=== PATIENT | female | born 1975 | race Caucasian/White ===

== ENCOUNTER → 2021-02-05 10:39 | Outpatient (CLI) | payer OTHER, SELFPAY ==
[2021-02-09 16:19] LABS: HPV Reflexed? NOT INDICATED
== END ==
PROVIDERS: Visit Provider Obstetrics & Gynecology
DX: Z12.4 Encounter for screening for malignant neoplasm of cervix (principal)
CPT/HCPCS: 88175; G0145

== ENCOUNTER 2021-04-09 13:23 | Emergency (ER) | payer OTHER, SELFPAY ==
[2021-04-09 13:25] VITALS: BP 140/98; PULSE 94; RESP 17; TEMP 36.3; O2SAT 97; BMI 34.7
--- NOTE | 2021-04-09 13:35 | EX.ED.UPPERE ---
HPI History of Present Illness Chief Complaint: Upper Extremity Injury Informant: patient Narrative Narrative: 45-year-old female states that she was lifting tables when her right hand was smashed between 2 of them. She is right-handed. She notes that it immediately swelled up. She notes painful range of motion. [facility] Medical History Anxiety Home Medications bupropion HCl 300 mg PO DAILY 04/09/21 [History Last Taken Unknown] etonogestrel-ethinyl estradiol 1 vag ring VAGINAL QMONTH 04/09/21 [History Last Taken Unknown] fluticasone propionate 2 spray INTRANASAL DAILY 04/09/21 [History Last Taken Unknown] montelukast 10 mg PO DAILY 04/09/21 [History Last Taken Unknown] Allergy/AdvReac Type Severity Reaction Status Date / Time No Known Allergies Allergy Verified 04/09/21 13:24 Social History (Updated 04/09/21 @ 13:[address] Maxwell Dias DO) Smoking Status: Never smoker substance use type: does not use ROS ROS ED Constitutional Constitutional ED: Denies chills or weight loss Eyes Eyes: Denies change in vision or diplopia ENT ENT ED: Denies ear pain, rhinorrhea or sore throat Cardiovascular Cardiovascular: Denies chest pain, orthopnea, palpitations or racing heartbeat Respiratory/Chest Respiratory/Chest: Denies cough, dyspnea or orthopnea Gastrointestinal Gastrointestinal: Denies abdominal pain, diarrhea, nausea or vomiting Genitourinary Genitourinary ED: Denies dysuria, hematuria or urinary frequency Musculoskeletal Musculoskeletal: Reports other Details: See HPI ; Denies arthralgias or myalgias Integumentary Denies abscess or rash Neurologic Neurologic: Denies headache(s) or weakness Psychiatric Psychiatric: Denies anxiety, depression, suicidal ideation or suicidal thoughts Endocrine Endocrinology: Denies polydipsia, polyphagia or polyuria Allergic/Immunologic Allergic/Immunologic ED: Denies mouth swelling, tongue swelling or urticaria EXAM Physical Exam Const Vital Signs: 04/09/21 13:25 Temperature 97.4 F L Temperature Source Temporal Pulse Rate 94 Respiratory Rate 17 Blood Pressure 140/98 H Blood Pressure Mean 112 Pulse Ox 97 Oxygen Delivery Method Room Air Positive well nourished and well developed General Appearance ED: well developed HEENT Reports normocephalic, head/scalp atraumatic and moist mucous membranes Eyes PERRL and EOMs intact bilaterally Neck no lymphadenopathy, supple and no JVD Resp normal respiratory effort and clear to auscultation bilaterally Cardio regular rate, regular rhythm and no murmurs GI normal to inspection, nondistended, normoactive bowel sounds and non-tender Palpation: soft Back/Spine no CVA tenderness and normal ROM Extremity full ROM Extremity Narrative: There is a hematoma over the dorsum of the right hand. It is located along the second and third metacarpal. Full range of motion. General Extremety ED: Negative for edema General Extremity: Negative for edema Neuro oriented x3 and CN's II-XII intact bilaterally Sensorium / Orientation: alert Motor Exam: strength 5/5 throughout Psych mental status grossly normal Mood & Affect: Negative for depressed or tearful Skin no rashes or lesions noted and no wounds MDM MDM MDM Narrative Medical decision making narrative: My interpretation of the plain films of the right hand is no acute fracture. Soft tissue swelling noted. Patient will be treated with ice Tylenol and Motrin. Monitor for compartment syndrome. follow-up as needed return if worsening or concerns Discharge Plan Triage Chief Complaint: Upper Extremity Injury ED Provider: Maxwell Dias Dx/Rx/DC Orders Clinical Impression: Traumatic hematoma of right hand Instructions: ED Crush Injury, Hand, ED Hematoma Prescriptions: No Action montelukast 10 mg tablet 10 mg PO DAILY RF: 0 fluticasone propionate 50 mcg/actuation spray,suspension 2 spray INTRANASAL DAILY RF: 0 etonogestrel-ethinyl estradiol 0.12-0.015 mg/24 hr ring 1 vag ring VAGINAL QMONTH RF: 0 bupropion HCl 300 mg tablet extended release 24 hr 300 mg PO DAILY RF: 0 Primary Care Provider: Lesly Johnson Referrals: Lesly Johnson DO [Primary Care Provider] - As Needed Disposition Disposition: Home, self care
--- NOTE | 2021-04-09 13:40 | RAD_ITS ---
STUDY: X-RAY - RIGHT HAND REASON FOR EXAM: Female, 45 years old. Injury TECHNIQUE: 3 view(s) of the hand. COMPARISON: None. FINDINGS: Normal radiocarpal articulation. Normal distal radioulnar joint. Normal visualized carpal bones. Normal carpal articulations Normal carpometacarpal articulation of the thumb. Normal second through fifth carpometacarpal joints. Normal metacarpi. Normal metacarpophalangeal joint of the thumb. Normal interphalangeal joint of the thumb. Normal proximal and distal phalanges of the thumb. Normal metacarpophalangeal joints of the second through fifth fingers. Normal proximal and distal interphalangeal joints of the second through fifth fingers. Normal phalanges of the second through fifth fingers. Dorsal soft tissue swelling. RAD/Hand Min 3 Views IMPRESSION: Dorsal soft tissue swelling. Electronically Signed: Tano Velasco MD at 13:50 EDT , Service support ,
== END 2021-04-09 14:00 | disposition home or self-care (01) ==
LOC: ED 13:52
PROVIDERS: Emergency Provider Emergency Medicine; PCP Internal Medicine
DX: S60.221A Contusion of right hand, initial encounter (principal); W23.0XXA Caught, crushed, jammed, or pinched between moving objects, initial encounter; Y93.89 Activity, other specified; Y92.9 Unspecified place or not applicable; Y99.9 Unspecified external cause status; F41.9 Anxiety disorder, unspecified; Z79.899 Other long term (current) drug therapy
CPT/HCPCS: 73130; 99282

== ENCOUNTER → 2024-12-03 | Outpatient (CLI) | payer OTHER, SELFPAY ==
[2024-12-06 14:08] LABS: HPV APTIMA, High Risk Negative (Negative)
== END | disposition home or self-care (01) ==
LOC: LABSPEC 11:46
PROVIDERS: PCP Internal Medicine; Referring Provider Obstetrics & Gynecology; Visit Provider Obstetrics & Gynecology
DX: Z12.4 Encounter for screening for malignant neoplasm of cervix (principal)
CPT/HCPCS: 87624; 88175; G0145

== ENCOUNTER → 2024-12-10 | Outpatient (CLI) | payer OTHER, SELFPAY ==
--- NOTE | 2024-12-10 15:16 | US_ITS ---
PROCEDURE: PELVIC W/ TRANSVAGINAL REASON FOR EXAM: Abnormal menses. TECHNIQUE: Transabdominal and transvaginal pelvic ultrasound COMPARISON: None. FINDINGS: Measurements: Uterus: 8.3 cm x 5.8 cm x 5 cm. Endometrial Thickness: 18.5 mm. This is thickened. Hyperechoic. Nabothian cyst of the cervix. Right Ovary: 4 cm x 4.1 cm x 3.4 cm. There is a 2.9 cm x 3.1 cm x 2.6 cm cyst. Left Ovary: 2.3 cm x 1.9 cm x 1.6 cm. TRANSABDOMINAL: Uterus: Normal size, myometrial echotexture, and contour. Endometrium: Endometrial thickening. Right ovary: Normal size and echotexture. Left ovary: Normal size and echotexture. No large pelvic mass identified. Transvaginal sonography was performed to better visualize the endometrium. TRANSVAGINAL: Uterus: Anteverted. Normal contour and myometrial echotexture. Endometrium: Endometrium is thickened. Right ovary: 2.9 cm x 3.1 cm x 2.6 cm right ovarian cyst. Left ovary: Normal size and echotexture. Other adnexal findings: None. Cul-de-sac: No free intraperitoneal fluid identified. No tenderness. US/Pelvic w/ Transvaginal IMPRESSION: Endometrium is thickened. Right ovarian cyst. Reading Location: [facility]
== END | disposition home or self-care (01) ==
LOC: US 15:15
PROVIDERS: PCP Internal Medicine; Referring Provider Obstetrics & Gynecology; Visit Provider Obstetrics & Gynecology
DX: N93.9 Abnormal uterine and vaginal bleeding, unspecified (principal)
CPT/HCPCS: 76830; 76856

== ENCOUNTER → 2025-02-01 | Outpatient (CLI) | payer OTHER, SELFPAY ==
--- NOTE | 2025-02-01 10:40 | EMB_PTH ---
PATIENT: JAYESH ANGULO LOC: [facility] U#:[id number] AGE/SX: 49/F ROOM: RE02/01/[address]: Dr. Ava Khalil DO : 1975 BED: DIS: 02/01/2025 SPEC #: [id number] RECD: 02/01/25 12:56 STATUS: SALLY REMita #: [id number] MIMI: 02/01/25 10:[address]: Ava Khalil DEPT: SURGICAL PATHOLOGY RECD BY: Hernando Elliott ENTERED: 02/01/25 12:57 SP TYPE: ENDOM BX/C OTHR DR: Dr. Lesly Johnson, DO Tissues: A - Endometrium, NOS Procedures: Surgery Specimen Level IV HEADER OPERATION: Endometrial biopsy PRE-OP DIAGNOSIS: Menorrhagia TISSUE SUBMITTED: A- Endometrial lining MICROSCOPIC DIAGNOSIS A. Uterus, endometrial lining, biopsy: - Disordered proliferative endometrium. MICROSCOPIC DESCRIPTION Slides are reviewed. GROSS DESCRIPTION A. Received in formalin in a container labeled with the patient's name, date of , and EMB are multiple rosario-pink fragments of soft tissue admixed with blood and mucus measuring 2.2 x 1.5 x 0.1 cm in aggregate. Submitted in toto in A1. [facility] 02-01-2025 CPT:10330
== END | disposition home or self-care (01) ==
LOC: BWCLAB 11:17
PROVIDERS: PCP Internal Medicine; Referring Provider Obstetrics & Gynecology; Visit Provider Obstetrics & Gynecology
DX: N92.0 Excessive and frequent menstruation with regular cycle (principal)
CPT/HCPCS: 88305

== ENCOUNTER 2025-03-26 05:32 | Day surgery (SDC) | payer OTHER, SELFPAY ==
[2025-03-15 17:07] LABS: Hematocrit 35.7 % (37-47); Mean Corp Hgb Conc 33.6 g/dL (32-36); Mean Corpuscular Hgb 28.2 pg (27.0-32.0); Mean Corpuscular Volume 83.8 fL (81-99); Platelet Count 191 K/mm3 (150-450); RBC Distribution Width SD 42.7 fl (35.1-43.9); Red Blood Count 4.26 M/mm3 (4.2-5.4); White Blood Count 7.7 K/mm3 (4.4-11.0)
[2025-03-15 17:21] LABS: Magnesium 2.1 mg/dL (1.5-2.2)
[2025-03-26] VITALS (11 sets, daily range): BP systolic 93–154; BP diastolic 60–91; PULSE 52–74; RESP 15–18; TEMP 36.3–37.2; O2SAT 99–100; BMI 38.6
[2025-03-26 06:16] LABS: Internal QC Validated? YES +Cl - CLEAR BKGD; Pregnancy, Urine Negative Negative
[2025-03-26] MEDS: Magnesium 1 GM over 15 mins IV (06:41)
[2025-03-26] MEDS: Lactated Ringers 1,000 ML 40 ML IV (06:41)
[2025-03-26] MEDS: Acetaminophen 500 MG Tablet 1000 MG PO (06:42)
[2025-03-26] MEDS: Phenazopyridine 95 MG Tablet 190 MG PO (06:42)
[2025-03-26] MEDS: Celecoxib 200 MG Capsule 400 MG PO (06:42)
[2025-03-26] MEDS: Gabapentin 600 MG Tablet PO (06:42)
[2025-03-26] MEDS: Scopolamine 1mg/72hr Patch 1 PATCH TD (06:42)
--- NOTE | 2025-03-26 06:42 | HP.PCM_ITS ---
History and Physical Date of Admission: 03/26/25 Intake Vital Signs 02/01/2510:13 03/15/2515:46 03/15/2515:46 Height 5 ft 5 in 5 ft 5 in 5 ft 5 in Weight: 232 lb 4 oz BMI 38.6 BP 137/85 H Intake Visit Reasons: TRH BS Cysto Removable Prosthodontist Required: No Is patient in pain?: No Allergies No Known Allergies Allergy (Verified 03/15/25 15:46) Medications ?Medication ?Instructions ?Recorded ?Confirmed ?Type medroxyprogesterone 10 mg tablet 10 mg PO QDAY #10 tabs 03/15/25 03/15/25 Rx Post menopausal: No Patient : No : No PFSH Medical History Heartburn Asthma Non-smoker Leg cramps Surgical History History of ankle surgery S/P cataract surgery Family History Father Diabetes Social History Smoking Status: Never smoker alcohol intake: never substance use type: does not use caffeine: Yes what type of physical activity do you participate in: none seatbelt use: always do you feel safe at home: Yes additional social history: - [facility] TR[facility] BS Cysto Details: JAYESH ANGULO is a 49 year old G0 who presents for hysterectomy preop. She suffers with heavy menses that last 16 days. 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 She mom had a hysterectomy when she was her age and she wonders if she would need one. Her l ast pap was with Dr. Guerrero in 2020. (normal without hpv). EMB is benign. Ultrasound shows the following: FINDINGS: Measurements: Uterus: 8.3 cm x 5.8 cm x 5 cm. Endometrial Thickness: 18.5 mm. This is thickened. Hyperechoic. Nabothian cyst of the cervix. Right Ovary: 4 cm x 4.1 cm x 3.4 cm. There is a 2.9 cm x 3.1 cm x 2.6 cm cyst. Left Ovary: 2.3 cm x 1.9 cm x 1.6 cm. TRANSABDOMINAL: Uterus: Normal size, myometrial echotexture, and contour. Endometrium: Endometrial thickening. Right ovary: Normal size and echotexture. Left ovary: Normal size and echotexture. No large pelvic mass identified. Transvaginal sonography was performed to better visualize the endometrium. TRANSVAGINAL: Uterus: Anteverted. Normal contour and myometrial echotexture. Endometrium: Endometrium is thickened. Right ovary: 2.9 cm x 3.1 cm x 2.6 cm right ovarian cyst. Left ovary: Normal size and echotexture. Other adnexal findings: None. Cul-de-sac: No free intraperitoneal fluid identified. No tenderness. US/Pelvic w/ Transvaginal IMPRESSION: Endometrium is thickened. Right ovarian cyst. History 0 Elective abortions Hx Para Spontaneous abortions Hx # Term Pregnancies Ectopic pregnancies Hx # Pregnancies Multiple births # of living children ROS Const ROS Unobtainable: All systems reviewed & are unremarkable except as noted in H Resp Resp: Reports system reviewed and no additional complaints, except as documented; Denies cough GI GI: Reports as per HPI Psych Psych: Reports system reviewed and no additional complaints, except as documented Exam Const General: cooperative, healthy appearing, comfortable and no acute distress Resp Effort & Inspection: normal respiratory effort Skin General: no rashes or lesions noted Psych Appearance: grossly normal Speech and Movement: speech and movement normal Coding Level of Care Code Off vis,est,level 4 Diagnoses Menorrhagia N92.0 Assessment and Plan Assessment and Plan (1) Menorrhagia: Status: Acute Medications: New medroxyprogesterone 10 mg PO QDAY 10 tabs 0RF Plan After discussing the patient's diagnosis and treatment plan options, patient wishes to proceed with surgical management. I have discussed with the patient the risks, benefits, and alternatives of the procedure which include but are not limited to risks of anesthesia, bleeding, infection, possible damage to bowel, bladder, or surrounding vasculature which could lead to additional surgery to evaluate any complications. Patient agrees to procedure and wishes to proceed. ACOG/uptodate references given for additional information regarding procedure. total robotic hysterectomy, bs,cysto 03/26/25
[2025-03-26 07:14] LABS: Bedside Glucose 89 mg/dL (74-106)
--- NOTE | 2025-03-26 07:16 | PCM.DC ---
Discharge Instructions Diet Discharge Diet: No restrictions DC O2, CPAP, BIPAP needs Home O2 Discharge instructions: No Dressing / Incision Discharge Activity: May Shower May resume sexual activity in: 8 weeks Weight Bearing Status: Full weight bearing Lifting Restrictions: 10 pounds for 2 weeks Dressing / Incision Call your doctor if your incision/area has: Continuous Slow Oozing, Sudden Increased Bleeding, Increased Pain/ Swelling, Increased Redness and Foul Smelling Discharge Call your doctor if you observe: Fever of 101 or Higher, Using more than 1 pad per hour, Shortness of breath, Chest pain and Uncontrolled pain Suture Line Care: Avoid Pulling/Pushing and Avoid Pinching/Bending Remove Dressing in: 1 week (if present) Cleanse incision/area with: Soap & Water and Keep Dressing Clean & Dry Follow Up Care Please Follow Up With: Ava Khalil DO When: Call to make an appointment with your doctor for a postop visit in 2 and 6 weeks Test Results: Test results from this visit will be discussed in further detail at your follow-up appointment, if applicable. Discharge Plan Admission Primary Reason for Your Visit: robotic hysterectomy Attending Provider: Ava Khalil Primary Care Provider: Lesly Johnson Instructions Print Language: Belarusian Discharge Orders/Prescriptions Prescriptions: New ibuprofen 800 mg tablet 800 mg PO Q8H PRN (Reason: pain) Qty: 30 0RF oxycodone-acetaminophen [Percocet] 5-325 mg tablet 1 tab PO Q4H PRN (Reason: pain) 7 Days Qty: 20 0RF Discontinued medroxyprogesterone 10 mg tablet 10 mg PO QDAY Qty: 10 0RF Referrals / Follow Up: Lesly Johnson DO [Primary Care Provider] - Disposition Disposition (needs filled in before D/C Order can be placed): Home, Self Care
--- NOTE | 2025-03-26 07:20 | PRE.ANES_ITS ---
ASA Classification* ASA Classification ASA Classification: 2 Assessment & Plan Anesthesia* Anesthesia Assessment Anesthesia Assessment: Discussed sedation and/or anesthesia options, risks, benefits, and alternatives with patient/parents/legal guardian/POA. Questions invited. The patient/parents/legal guardian/POA seems to understand and agrees to proceed with anesthesia plan. Reviewed the physical assessment, medical history, allergy history and patient home medications list prior to surgery/procedure/anesthetic and documented any changes. Performed airway and anesthesia risk assessments. Anesthesia Type Anesthesia Type: General History Source History Obtained from:: Patient and Chart Anesthesia Focused Assessment* Temperature: 99.0 F Pulse Rate: 74 Blood Pressure: 154/91 Respiratory Rate: 18 Pulse Ox: 100 Oxygen Delivery Method: Room Air Airway Assessment Mouth opens: >3 cm Mallampati Score: II Teeth Condition: Intact Neck Range of motion (ROM): Full ROM Focused Labs Anesthesia Preop lab: CBC WBC 7.7 K/mm3 (4.4-11.0) 03/15/25 15:16 03/15/25 RBC 4.26 M/mm3 (4.2-5.4) 03/15/25 15:16 03/15/25 Hgb 12.0 g/dL (12.0-15.0) 03/15/25 15:16 03/15/25 Hct 35.7 % (37-47) L 03/15/25 15:16 03/15/25 Plt Count 191 K/mm3 (150-450) 03/15/25 15:16 03/15/25 CHEMISTRY Magnesium 2.1 mg/dL (1.5-2.2) 03/15/25 15:16 03/15/25 POC Glucose 89 mg/dL (74-106) 03/26/25 06:33 03/26/25 TSH 2.99 uIU/mL (0.358-3.74) 04/21/16 11:59 COAG Urine Test Negative Negative 03/26/25 05:40 03/26/25 Tst Clinic Negative 02/01/25 10:46 02/01/25 Pre-Assessment Diagnosis/Proposed Procedure Planned Operative Procedure(s): TOTAL ROBOTIC HYSTERECTOMY BSO CYSTO Anesthesia History 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 When Was Last Pacemaker Check QUESTION #4 FULL TEXT: You/Your Family Experience fever (hyperthermia) with Anesthesia Any additional information?: No Last Oral Intake Last Oral intake: Last Oral Intake NPO since 03:00 03/26/25 06:33 Meds taken in AM with sips of water? Meds patient instructed to take am of surgery Any additional information?: No PONV PONV - sales promotion manager: PONV - sales promotion manager Female Yes 03/13/25 17:15 HX of Motion Sickness Yes 03/13/25 17:15 HX of N/V After Surgery No 03/13/25 17:15 Non-Smoker Yes 03/13/25 17:15 Duration of Surgery greater Yes 03/13/25 17:15 than 60 minutes Number of Risk Factors 4 03/13/25 17:15 PONV Score Severe Risk 03/13/25 17:15 Height & Weight Height & Weight: Anesthesia: Height & Weight Height 5 ft 5 in 03/26/25 06:33 Weight: 105.3 kg 03/26/25 06:33 Body Mass Index (BMI) 38.6 03/26/25 06:33 Respiratory Assessment Respiratory Assessment - sales promotion manager: Respiratory Tract Infection Hx - sales promotion manager Hx Respiratory Tract Infection No 03/13/25 17:15 STOP Sleep Apnea STOP Sleep Apnea - sales promotion manager: STOP Sleep Apnea - sales promotion manager Hx Hypertension No 03/13/25 17:15 Hx Sleep Apnea No 03/13/25 17:15 CPAP BIPAP Do you snore loudly (louder Yes 03/13/25 17:15 than talking or can be heard Do you often feel tired/ Yes 03/13/25 17:15 fatigued/ sleepy during daytime? Has anyone observed you stop No 03/13/25 17:15 breathing during sleep? STOP Results Positive 03/13/25 17:15 QUESTION #5 FULL TEXT : Do you snore loudly (louder than talking or can be heard through closed doors)? Tobacco Use History Tobacco Use History - sales promotion manager: Tobacco Use History - sales promotion manager Tobacco Use Smoking Status Never smoker 03/13/25 17:15 Hx Tobacco Use No 03/13/25 17:15 Years Smoking Packs Smoked per Day Smoking Cessation Date was within the last 15 years Hx Smoking Cessation Date Hx Smoking Cessation Counseling Hematologic Medial History Hematologic Hx - sales promotion manager: Hematologic Medical Hx - plastic finisher Hx of Blood Transfusion No 03/13/25 17:15 Hx of Transfusion in last 3 No 03/13/25 17:15 Months Date of Last Transfusion (if within last 3 months) Ever experience any problems No 03/13/25 17:15 with transfusion(s)? Specify any problems Hx of Preganancy in last 3 No 03/13/25 17:15 Months Nurse Filling Out Transfusion DSCHRIBER 03/13/25 17:15 & Questions: Date: 03/13/25 03/13/25 17:15 Time: 17:16 03/13/25 17:15 Patient unable to answer at this time (ie. confused, unrespo /Reproduction History /Reproductive History - sales promotion manager: /Reproductive Hx- sales promotion manager Hx Now No 03/13/25 17:15 Gestational Age (in weeks): EDC: Hx Hx Para Hx Section SAB No 03/15/25 15:46 Active Medications Active Medications: Current Medications Generic Name Dose Route Start Last Admin Trade Name Freq PRN Reason Stop Dose Admin Acetaminophen 1,000 mg 03/26/25 07:30 03/26/25 06:42 Acetaminophen 500 Mg Tablet PO 03/26/25 07:31 1,000 mg PREOP ONE Administration Celecoxib 400 mg 03/26/25 07:30 03/26/25 06:42 Celecoxib 200 Mg Capsule PO 03/26/25 07:31 400 mg PREOP ONE Administration Gabapentin 600 mg 03/26/25 07:30 03/26/25 06:42 Gabapentin 600 Mg Tablet PO 03/26/25 07:31 600 mg PREOP ONE Administration Lactated Ringer's 1,000 mls @ 40 mls/hr 03/26/25 07:30 03/26/25 06:41 IV 40 mls/hr .Q25H ANTHONY Administration Cefazolin Sodium 2 gm/ Sodium 110 mls @ 150 mls/hr 03/26/25 07:30 Chloride IV 03/26/25 08:13 INTRAOP ONE Insulin Human Lispro 0 unit 03/26/25 07:30 Insulin Lispro 100 Unit/Ml Insuln.Pen SC 03/26/25 18:00 Q4H PRN PRN BG >/= 180, SEE PROTOCOL Protocol Ondansetron HCl 4 mg 03/26/25 07:30 Ondansetron 4 Mg/2 Ml Vial IV 03/26/25 07:31 INTRAOP ONE Phenazopyridine HCl 190 mg 03/26/25 07:30 03/26/25 06:42 Phenazopyridine 95 Mg Tablet PO 03/26/25 07:31 190 mg PREOP ONE Administration Scopolamine HBr 1 patch 03/26/25 07:30 03/26/25 06:42 Scopolamine 1mg/72hr Patch TD 03/26/25 07:31 1 patch PREOP ONE Administration PFSH Medical History Heartburn Asthma Non-smoker Leg cramps Home Medications ?Medication ?Instructions ?Recorded ?Last Taken ?Type ibuprofen 800 mg tablet 800 mg PO Q8H PRN pain #30 t abs 03/26/25 Unknown Rx oxycodone-acetaminophen 5 mg-325 1 tab PO Q4H PRN pain 7 days #20 03/26/25 Unknown Rx mg tablet (Percocet) tabs Allergy/AdvReac Type Severity Reaction Status Date / Time No Known Allergies Allergy Verified 03/26/25 06:11 Family History Father Diabetes Surgical History History of ankle surgery S/P cataract surgery Social History Smoking Status: Never smoker alcohol intake: never substance use type: does not use caffeine: Yes what type of physical activity do you participate in: none seatbelt use: always do you feel safe at home: Yes additional social history: [facility] Review of Systems (Anesthesia) ROS Narrative System reviewed and no additional complaints, except as documented. Physical Exam Const alert and oriented x3 Orientation / Consciousness: awake Nutritional Appearance: obese HEENT dentition normal Throat: uvula midline Neck full ROM Resp normal respiratory effort Auscultation: clear to auscultation bilaterally Cardio regular rate and regular rhythm Back/Spine normal ROM Extremity full ROM Skin Rashes: no rashes Neuro oriented x3 and moves all extremities
--- NOTE | 2025-03-26 07:30 | UT_PTH ---
PATIENT: JAYESH ANGULO LOC: [facility] [place] U[place][id number] AGE/SX: 49/F ROOM: RE03/26/[address]: Dr. Ava Khalil DO : 1975 BED: DIS: 03/26/2025 SPEC #: [id number] RECD: 03/26/25 11:11 STATUS: SALLY NANDA #: [id number] MIMI: 03/26/25 07:[address]: Ava Khalil DEPT: SURGICAL PATHOLOGY RECD BY: Hernando Elliott ENTERED: 03/26/25 11:43 SP TYPE: UTERUS OTHR DR: Dr. Lesly Johnson DO Tissues: A - Uterus, NOS Procedures: Surgery Specimen Level V HEADER OPERATION: ERAS, total robotic hysterectomy bilateral salpingectomy PRE-OP DIAGNOSIS: Menorrhagia TISSUE SUBMITTED: A- Uterus, bilateral fallopian tubes MICROSCOPIC DIAGNOSIS A. Uterus and bilateral fallopian tubes, hysterectomy and bilateral salpingectomy: * Cervix: no specific pathologic change. * Endometrium: secretory phase. * Myometrium: no specific pathologic change. * Right fallopian tube: no specific pathologic change. * Left fallopian tube: no specific pathologic change. MICROSCOPIC DESCRIPTION Slides are reviewed. GROSS DESCRIPTION A. Received in formalin in a container labeled with the patient's name, date of , and uterus, bilateral fallopian tubes is a hysterectomy specimen with bilateral attached fimbriated fallopian tubes. The fallopian tubes are amputated, and the uterus with cervix is 114.7 g and 9.1 cm from fundus to ectocervix, 5.0 cm from cornu to cornu, and 4.3 cm from anterior to posterior. The serosa is rosario-pink, smooth and glistening. The white-pink ectocervix is 3.5 x 2.9 cm with granularity surrounding the 0.8 cm slit-like os. The specimen is bivalved to reveal a 3.5 x 1.1 cm rosario-pink and corrugated endocervical canal. The triangular endometrial cavity is 4.0 cm in length by 3.4 cm in width. There is red-rosario, velvety endometrium which is poorly adherent to the mucosa, measuring up to 1.0 cm in greatest thickness. The rosario-pink myometrium is up to 2.0 cm in greatest thickness. No myometrial nodules are identified. The right fimbriated fallopian tube is 6 cm in length by 0.8 cm in diameter with an unremarkable fimbriated end. The serosa is rosario-pink and within normal limits with a 0.9 cm paratubal cyst. Sectioning reveals a pinpoint lumen.The left fimbriated fallopian tube is 5 cm in length by 0.6 cm in diameter with an unremarkable fimbriated end. The serosa is within normal limits and sectioning reveals a pinpoint lumen. History Card Clerk sections:A1. Anterior cervix with anterior serosal shaveA2. Posterior cervix with posterior serosal shaveA3. Anterior endomyometrium (superficial x 2)A4. Posterior full-thickness section with thickest endometriumA5. Posterior endomyometrium (superficial sections)A6. Right fallopian tubeA7. Left fallopian tube [facility] 03-26-2025 CPT:23951
[2025-03-26] MEDS: Cefazolin 2 GM in 0.9% Normal Saline (100mL Bag) 100 ML IV (07:34)
[2025-03-26] MEDS: Bupivacaine 0.25% 30 ML Vial (08:41)
[2025-03-26] MEDS: Ondansetron 4 MG/2 ML Vial IV (08:43)
--- NOTE | 2025-03-26 09:10 | PCM.OPRPT ---
Problems Associated Problem List Diagnoses (1) Menorrhagia: Multi Select Codes Urinary/Genital Urinary/Genital CPT Codes: 66520 Cystoscopy and 19347 TLH+BS/O <250gr uterus Operative Report (Standard) Operative Information Date of Procedure: 03/26/25 Pre-Operative Diagnosis: menorrhagia Post-Operative Diagnosis: menorrhagia Surgery/Procedure Performed: total robotic hysterectomy, bilateral salpingectomy, cystoscopy plant operations worker: Yes Glove Cleaner: Ricky Macias Tasks completed by mental health assistant: Closing, Insert Trochanter, Retracting and Other (application of hemostatic agent ) Additional retail loan originator assistant?: No Type of Anesthesia: General RN Documented Start/Stop Times: Operation Date: 03/26/25 07:30 Case Time Into Pre-Op 03/26/25 05:41 Out of Pre-Op 03/26/25 07:28 Anesthesia Start 03/26/25 07:34 Into Room 03/26/25 07:34 Procedure Start 03/26/25 08:00 Procedure End 03/26/25 09:20 Procedure Start Time: 08:00 Procedure Stop Time: 09:20 Select all DRAINS/GRAFTS/IMPLANTS that apply: None Estimated Blood Loss: 100cc Specimen collected: Yes Description of specimen(s) removed: uterus, cervix, fallopian tubes Description of surgery: Findings: 10 cm size uterus, normal appearing ovaries and tubes. On exploration of the abdominal cavity the uterus, adnexa, bowel, and liver were found to be normal. Cystoscopy showed no evidence of leaking at approximately 250 cc of normal saline, positive ureteral orifices and jet flow are seen and no suture material was appreciated in the bladder. Specimens removed: Uterus and cervix, Bilateral tubes Reason for surgery: This is a 49-year-old G0, who presented to my office with history of heavy periods. She tried ocps without success and requested hysterectomy. Due to obesity the planned procedure is for a robotic hysterectomy the risks benefits and alternatives were discussed with the patient the patient had a clear understanding of the procedure and a consent form was signed. Procedure: The patient was placed in the dorsal low lithotomy position and prepped and draped in the normal sterile fashion both abdominally and in the perineum. Her legs were placed in stirrups a Harris catheter was inserted into the urethra without difficulty. A weighted speculum was placed in the vagina and a single-tooth tenaculum was used to grasp the anterior lip of the cervix. An [employer] uterine manipulator was inserted through the cervix without complication. It was then tied into place at the 2 and 10:00 locations on the cervix. Gloves were changed and attention was turned towards the abdomen. Approximately 23 cm above the pubic symphysis in the midline, and after Marcaine injection, a 8 mm incision was made. An 8 mm trocar was inserted through the laparoscope, then inserted into the abdomen under direct visualization using the laparoscope. Good abdominal placement was noted and no complications were appreciated. An air seal device was utilized to create pneumoperitoneum. At 12 cm lateral to the midline on the left and right sides 8 mm accessory ports were placed. Next a left upper quadrant 8 mm retail loan originator assistant port site was placed. The patient was placed in steep Trendelenburg position. The robot was docked. The hysterectomy was initiated first by taking down the fallopian tubes and the round ligament on each side using the vessel sealer device. the broad ligament was then and taken down using the vessel sealer device. Next the bladder flap was taken down without complication. This was done using monopolar cautery to the level of the cervical vaginal junction. After the bladder flap was created, uterine vessels were then isolated and cauterized using the vessel sealer device and EndoShears. At this point the uterine vessels were taken down further starting from the ascending branch, dissecting along the edges of the cervix to the level of the cervical vaginal junction with hemostasis appreciated. The cervical vaginal junction was then using monopolar cautery in a circumferential pattern across the superior aspect of the cervix. The specimen was delivered through the vagina and sent to pathology. The remaining vaginal cuff was then closed using a V lock suture. This was performed in a running technique. Hemoblaset was applied to the cuff. Excellent hemostasis was obtained and good closure was noted. Irrigation was then performed. All operative sites were noted to be hemostatic. There were some dilated purple veins on the left ovary. This area was visually observed during the cystoscopy. A cystoscopy was performed with a 70 degree cystoscope through the urethra into the bladder without complication. The bladder was instilled with approximately 250 cc of normal saline. Intraoperative images were made. Ureteral orifices and jets were identified. No suture material was appreciated in the bladder. The bladder was then drained and cystoscope was removed. A second look at the ovary showed that the vessels were not expanding and excellent hemostasis was noted. The abdominal cavity was again examined using the laparoscope after the robot was undocked. All operative sites were noted to be hemostatic. The trochars were removed under direct visualization without complication and pneumoperitoneum was reduced. At this point the skin was then closed using 4-0 Monocryl subcuticular stitch and sealed with surgical glue. The patient tolerated the procedure well sponge lap and needle counts were correct x2 the patient was taken to the recovery room in stable condition. Surgical Findings: normal uterus, tubes, and ovaries. Complications Complications: No Admit VTE Documentation VTE Present on Admission: No VTE Mechan Device Prophylaxis: SCD's VTE Pharm Prophylaxis ordered?: No
--- NOTE | 2025-03-26 09:34 | PCM.POST.ANE ---
Anesthesia: Postop Eval I Current Vital Signs Temperature: 97.3 F Pulse Rate: 69 Blood Pressure: 112/70 Respiratory Rate: 16 Pulse Ox: 99 Oxygen Delivery Method: Room Air Assessment Airway patent: Yes Spontaneous unlabored respirations: Yes Mental status: Awake and Calm nausea: No Vomiting: No Anesthesia Complication: No Fluid Hydration Crystalloid volume administer (ml): 1,000 Total IV fluid infused: 1,000 Progress Note Post-operative progress note: patient tolerated well Anesthesia document: Postop Eval 1 completed: Yes
--- NOTE | 2025-03-26 09:51 | POSTOPAN2_ITS ---
Anesthesia Postop Eval I Sum Postop Eval Completion status Anesthesia document: Postop Eval 1 completed: Yes Anesthesia Postop Eval I Summary Anesthesia Postop Eval I Summary: Anesthesia Postop Eval I: Assessment Summary Airway patent Yes 03/26/25 09:35 INTERVENTION SPECIALIST.MEDM Spontaneous unlabored Yes 03/26/25 09:35 INTERVENTION SPECIALIST.MEDM respirations Mental status Awake,Calm 03/26/25 09:35 INTERVENTION SPECIALIST.MEDM nausea No 03/26/25 09:35 INTERVENTION SPECIALIST.MEDM Vomiting No 03/26/25 09:35 INTERVENTION SPECIALIST.MEDM Anesthesia Postop Eval I: Fluid Summary Crystalloid volume administer 1,000 03/26/25 09:35 INTERVENTION SPECIALIST.MEDM (ml) Colloids volume administered ( ml) Blood Product volume administered (ml) Total IV fluid infused 1,000 03/26/25 09:35 INTERVENTION SPECIALIST.MEDM Anesthesia Postop Eval I: Summary Notes Anesthesia Complication No 03/26/25 09:35 INTERVENTION SPECIALIST.MEDM Anesthesia Complication Comment: Post-operative progress note patient tolerated 03/26/25 09:35 INTERVENTION SPECIALIST.MEDM well Anesthesia: Postop Eval II Evaluation Mental status: Awake and Calm Pain Level: 2 nausea: No Vomiting: No Complications Anesthesia Complication: No
--- NOTE | 2025-03-26 09:51 | PCM.POSTANE2 ---
Anesthesia Postop Eval I Sum Postop Eval Completion status Anesthesia document: Postop Eval 1 completed: Yes Anesthesia Postop Eval I Summary Anesthesia Postop Eval I Summary: Anesthesia Postop Eval I: Assessment Summary Airway patent Yes 03/26/25 09:35 HOTEL OPERATIONS MANAGER.MEDM Spontaneous unlabored Yes 03/26/25 09:35 HOTEL OPERATIONS MANAGER.MEDM respirations Mental status Awake,Calm 03/26/25 09:35 HOTEL OPERATIONS MANAGER.MEDM nausea No 03/26/25 09:35 HOTEL OPERATIONS MANAGER.MEDM Vomiting No 03/26/25 09:35 HOTEL OPERATIONS MANAGER.MEDM Anesthesia Postop Eval I: Fluid Summary Crystalloid volume administer 1,000 03/26/25 09:35 HOTEL OPERATIONS MANAGER.MEDM (ml) Colloids volume administered ( ml) Blood Product volume administered (ml) Total IV fluid infused 1,000 03/26/25 09:35 HOTEL OPERATIONS MANAGER.MEDM Anesthesia Postop Eval I: Summary Notes Anesthesia Complication No 03/26/25 09:35 HOTEL OPERATIONS MANAGER.MEDM Anesthesia Complication Comment: Post-operative progress note patient tolerated 03/26/25 09:35 HOTEL OPERATIONS MANAGER.MEDM well Anesthesia: Postop Eval II Evaluation Mental status: Awake and Calm Pain Level: 2 nausea: No Vomiting: No Complications Anesthesia Complication: No
--- NOTE | 2025-03-26 12:21 | SUR.PHASEII ---
Pt up to BR with SBA. pt states she voided a little bit. Back to room. Bladder scanned 253cc postvoid residual. po fluids encouraged.
== END 2025-03-26 13:16 | disposition home or self-care (01) ==
LOC: SDC 05:45 → AC 05:57
PROVIDERS: Anesthesiology; PCP Internal Medicine; Referring Provider Obstetrics & Gynecology; Visit Provider Obstetrics & Gynecology
PROC: 0UT90ZZ Resection of Uterus, Open Approach (ICD-10-PCS; CPT 58571; principal; 2025-03-26 07:10)
DX: N92.0 Excessive and frequent menstruation with regular cycle (principal); J45.909 Unspecified asthma, uncomplicated
CPT/HCPCS: 58571; S2900; 00840; 36415; 81025; 82962; 83735; 85027; 86850; 86900; 86901; 88307; J2405; J3475

== ENCOUNTER 2025-05-08 17:03 | Emergency (ER) | payer OTHER, SELFPAY ==
[2025-05-08 17:04] VITALS: BP 178/112; PULSE 71; RESP 16; TEMP 36.8; O2SAT 99; BMI 37.7
[2025-05-08 18:00] LABS: Mucous, Urine 0 SEEN /hpf (<or=2+)
[2025-05-08 18:10] LABS: Color, Urine Yellow (Yellow); Glucose, Dipstick Normal (Normal); Ketone-Dipstick 15 mg/dl (Negative); Leukocyte Esterase-Dipstick 25 /ul (Negative); Nitrite-Dipstick Negative (Negative); Occult Blood-Urine 150 /ul (Negative); Protein-Dipstick 15 mg/dl (Negative); Specific Gravity, Urine 1.010 (1.002-1.030); Urine Bilirubin Dipstick Negative (Negative)
[2025-05-08] MEDS: 0.9% Normal Saline (1000mL) 1,000 ML 250 ML IV (18:34)
--- NOTE | 2025-05-08 18:36 | EDS_ITS ---
HPI History of Present Illness Chief Complaint: Flank Pain Informant: patient Narrative Narrative: Patient is a 49-year-old female with no significant past medical history (did have hysterectomy on 03/26/2025) presenting with right flank pain. Patient states that it started suddenly 2 days ago. Denies any radiation. Had associated vomiting with it. Denies any aggravating or alleviating factors. States the pain tolerable yesterday and not as severe. No she did have intercourse yesterday. Today the pain became severe again which is what prompted her to come to the ER. Has milder pain at this moment. Currently denies any nausea did have some earlier. No vomiting today. Denies any urinary symptoms such as hematuria or dysuria. Denies any abnormal vaginal discharge or bleeding. No fever or chills reported. Not currently on any antibiotics. Denies any history of kidney stones. Denies any other abdominal surgeries. [facility] Medical History Menorrhagia Heartburn Asthma Non-smoker Leg cramps Home Medications ?Medication ?Instructions ?Recorded ?Last Taken ?Type NK 04/11/25 Unknown History Allergy/AdvReac Type Severity Reaction Status Date / Time No Known Allergies Allergy Verified 05/08/25 17:06 Family History Father Diabetes Surgical History Status post hysterectomy History of ankle surgery S/P cataract surgery Social History Smoking Status: Never smoker alcohol intake: never substance use type: does not use caffeine: Yes what type of physical activity do you participate in: none seatbelt use: always do you feel safe at home: Yes additional social history: - Odalys ROS ROS ED Constitutional Constitutional ED: Denies chills, fever(s) or sweats Gastrointestinal Gastrointestinal: Reports nausea and vomiting; Denies abdominal pain, constipation or diarrhea Genitourinary Genitourinary ED: Denies dysuria or hematuria Musculoskeletal Musculoskeletal: Reports back pain Integumentary Denies rash Neurologic Neurologic: Denies paresthesias or weakness Psychiatric Psychiatric: Denies anxiety or depression EXAM Physical Exam Const Vital Signs: 05/08/25 17:04 05/08/25 19:06 Temperature 98.2 F Temperature Source Oral Pulse Rate 71 73 Respiratory Rate 16 18 Blood Pressure 178/112 H Blood Pressure Mean 134 Pulse Ox 99 97 Oxygen Delivery Method Room Air Positive well nourished and well developed General Appearance ED: well developed and NAD HEENT Reports moist mucous membranes Neck supple Chest Wall inspection of chest normal and palpation of chest normal Resp normal respiratory effort and clear to auscultation bilaterally Cardio regular rate and regular rhythm GI normal to inspection, nondistended, normoactive bowel sounds and non-tender Auscultation: normoactive bowel sounds Palpation: soft; Negative for tender or guarding Back/Spine Back/Spine Narrative: Patient points to pain in her right CVA region but it is not reproducible General Back: Negative for CVA tenderness Extremity normal to inspection Extremity Narrative: No change in pain with straight leg test. Neuro oriented x3 Sensorium / Orientation: alert Motor Exam: Negative for general weakness Psych mental status grossly normal MDM MDM MDM Narrative Medical decision making narrative: Patient is evaluated for right flank pain for the past 2 days. She appears nontoxic in no acute distress. Upon arrival patient's blood pressure significant for hypertension. She states her pain was quite severe when she arrived however it is calm down on my evaluation. Differential includes renal colic, pyelonephritis, muscle skeletal pain, sciatica (lower suspicion given she has a negative straight leg test), shingles (lower suspicion given no overlying rash). She does not have any associate abdominal pain on exam so low suspicion for biliary colic/pancreatitis as a cause of her pain. Urinalysis, CBC and BMP obtained. Lab work does show elevated red blood cells as well as urinary contamination with epithelial cells but no findings consistent with infection. CBC and BMP otherwise unremarkable. CT of the abdomen and pelvis does show a stone in the bladder with some mild right hydroureteronephrosis likely representing recent passed stone. I suspect patient had just passed kidney stone and this is what caused her presentation and her hematuria. Patient informed of findings. She was given Toradol and IV fluids in the emergency room. Will be discharged home to follow-up with PCP as needed. As she is already passed the stone and this is her first 1, has normal kidney function and does not have further stones noted in her kidney on CT imaging and I do not think she requires urology referral at this time. Is encouraged follow-up with family doctor Lab Data Labs: Laboratory Results - last 24 hr 05/08/25 05/08/25 17:20 17:50 WBC 10.3 RBC 4.36 Hgb 12.1 Hct 36.9 L MCV 84.6 MCH 27.8 MCHC 32.8 RDW Std Deviation 46.7 H RDW Coeff of Andrea 15.2 H Plt Count 218 MPV 11.0 Immature Gran % (Auto) 0.200 Neut % (Auto) 60.5 Lymph % (Auto) 32.2 [place] % (Auto) 5.6 Eos % (Auto) 1.0 Baso % (Auto) 0.5 Absolute Neuts (auto) 6.2 Absolute Lymphs (auto) 3.30 Nucleated RBC % 0 Sodium 139 Potassium 3.4 Chloride 105 Carbon Dioxide 22.0 Anion Gap 12 BUN 10 Creatinine 0.98 Estim Creat Clear Calc 84.40 Est GFR (MDRD) Non-Af 72 BUN/Creatinine Ratio 10.6 Glucose 102 H Calcium 9.2 Urine Color Yellow Urine Clarity Sl. Cloudy Urine pH 6.0 Ur Specific [place] 1.010 Urine Protein 15 H Urine Glucose (UA) Normal Urine Ketones 15 H Urine Occult Blood 150 H Urine Nitrite Negative Urine Bilirubin Negative Urine Urobilinogen Normal Ur Leukocyte Esterase 25 H Urine RBC 10-25 SEEN Urine WBC 5-10 SEEN Ur Squamous Epith Cells 25-50 SEEN Urine Bacteria 0 SEEN Urine Mucus 0 SEEN Radiography Diagnostic Testing: Clinical Impression(s) from Imaging Studies Abdomen/Pelvis CT 05/08/25 18:54 IMPRESSION: Urinary bladder calculus. Mild right hydroureteronephrosis likely representing recent passage of the calculus within the urinary bladder. Reading Location: [place] [id number] Discharge Plan Triage Chief Complaint: Flank Pain ED Provider: Vikki Rouse Dx/Rx/DC Orders Clinical Impression: Renal colic on right side, Calculus, renal Instructions: ED Kidney Stone, Passed Prescriptions: No Action NK Primary Care Provider: Lesly Johnson Referrals: Lesly Johnson, [Primary Care Provider] - Activity Restrictions/Additional Instructions: It appears that you passed a kidney stone into your bladder. This was likely causing your pain. For further discomfort you may alternate ibuprofen and Tylenol. Follow-up with your family doctor. You do not have any further kidney stones in your bladder and your kidneys at this time. Print Language: Syriac Disposition Disposition: Home, Self Care
[2025-05-08 18:48] LABS: Red Blood Cells-Urine 10-25 SEEN /hpf (0-5); Squamous Epithelial Cells - UA 25-50 SEEN /hpf (5-10)
--- NOTE | 2025-05-08 18:54 | CT_ITS ---
PROCEDURE: ABDOMEN/PELVIS WITHOUT CONT 05/08/2025 REASON FOR EXAM: KIDNEY STONE TECHNIQUE: ABDOMEN/PELVIS WITHOUT CONT Noncontrast technique limits evaluation of the abdominal and pelvic viscera. Coronal and Sagittal reconstruction series were provided. One or more dose reduction techniques were used (e.g., Automated exposure control, adjustment of the mA and/or kV according to patient size, use of iterative reconstruction technique). RADIATION DOSE SUMMARY: CTDlvol: 18.78 mGy DLP: 985.43 mGycm COMPARISON: None. FINDINGS: Mild bilateral dependent atelectasis. The peripheral soft tissues unremarkable. No acute osseous abnormalities. Normal caliber abdominal aorta. No suspicious lymphadenopathy. The liver, gallbladder, pancreas, spleen, and adrenals are unremarkable. Symmetric kidneys. No renal calculi. Mild right hydroureteronephrosis without a visualized obstructing ureteral calculus. Small 2 mm calculus within the posterior dependent urinary bladder. Normal caliber large and small bowel. CT/Abdomen/Pelvis without Cont IMPRESSION: Urinary bladder calculus. Mild right hydroureteronephrosis likely representing recent passage of the calculus within the urinary bladder. Reading Location: [place] [id number]
[2025-05-08 19:06] VITALS: PULSE 73; RESP 18; O2SAT 97
[2025-05-08 19:11] LABS: Hematocrit 36.9 % (37-47); Hemoglobin 12.1 g/dL (12.0-15.0); Immature Granulocytes Count 0.020 X10^3/uL (0.0-0.0); Mean Corp Hgb Conc 32.8 g/dL (32-36); Mean Corpuscular Volume 84.6 fL (81-99); Mean Platelet Vol. 11.0 fl (6.2-12.0); NRBC Flagged by Analyzer 0 % (0-5); Platelet Count 218 K/mm3 (150-450); RBC Distribution Width CV 15.2 % (11.6-14.6); RBC Distribution Width SD 46.7 fl (35.1-43.9); Red Blood Count 4.36 M/mm3 (4.2-5.4); White Blood Count 10.3 K/mm3 (4.4-11.0)
[2025-05-08 19:12] LABS: Anion Gap 12 (5-15); BUN 10 mg/dL (4-19); BUN/Creat Ratio 10.6 RATIO (10-20); Calcium,Total 9.2 mg/dL (7.6-11.0); Carbon Dioxide 22.0 mmol/L (21.0-32.0); Chloride 105 mmol/L (98-108); Estimated Creatinine Clearance 84.40 ml/min (50-250); Glucose 102 mg/dL (70-99); Potassium 3.4 mmol/L (3.3-5.1)
[2025-05-08 21:08] VITALS: BP 126/86; PULSE 73; RESP 16; TEMP 36.8; O2SAT 98
== END 2025-05-08 21:12 | disposition home or self-care (01) ==
PROVIDERS: Emergency Provider Emergency Medicine; PCP Internal Medicine; Referring Provider Emergency Medicine; Visit Provider Emergency Medicine
DX: N13.2 Hydronephrosis with renal and ureteral calculous obstruction (principal); I10 Essential (primary) hypertension; R11.2 Nausea with vomiting, unspecified; J45.909 Unspecified asthma, uncomplicated; Z90.710 Acquired absence of both cervix and uterus; N21.0 Calculus in bladder
CPT/HCPCS: 74176; 80048; 81001; 85025; 96361; 96374; 99283; A4216